=== PATIENT | male | born 1980 | race Caucasian/White ===

== ENCOUNTER 2018-10-03 14:44 | Emergency (ER) | payer MEDICAID ==
[~2018-10-03] VITALS: Ht 182.9 cm; Wt 68.0 kg
[2018-10-03 14:55] VITALS: BP 136/74
[2018-10-03 15:12] LABS: Basophils # (auto) 0.1 uL; Basophils % (auto) 1.2 % (0.0-2.0); Eosinophils # (auto) 0.1 uL; Eosinophils % (auto) 1.3 % (0.0-7.0); Hematocrit 45.5 % (41.0-53.0); Hemoglobin 15.4 g/dL (13.5-17.5); Lymphocytes # (auto) 1.4 uL; Lymphocytes % (auto) 16.3 % (10.0-50.0); Mean Corpuscular Hemoglobin 32.1 pg (28.0-32.0); Mean Corpuscular Hgb Conc. 33.7 g/dL (32.0-36.0); Mean Corpuscular Volume 95.3 fL (80.0-100.0); Monocytes # (auto) 0.8 uL; Monocytes % (auto) 9.3 % (0.0-12.0); Neutrophils # (auto) 6.1 uL; Neutrophils % (auto) 71.9 % (37.0-80.0); Platelet Count (auto) 343 10^3/uL (140-450); Red Blood Cells 4.78 10^6/uL (4.5-5.90); Red Cell Distribution Width 15.5 % (11.8-14.3); White Blood Cell 8.6 10^3/uL (4.4-10.8)
[2018-10-03 15:24] LABS: Alanine Aminotransferase 20 U/L (16-61); Anion Gap 10 (5-15); Blood Urea Nitrogen 10 mg/dL (7-18); Carbon Dioxide 28 mmol/L (21-32); Chloride 101 mmol/L (98-107); Glucose 122 mg/dL (74-106); Sodium 139 mmol/L (136-145)
[2018-10-03 15:28] LABS: Alkaline Phosphatase 80 U/L (45-117); Aspartate Aminotransferase 30 U/L (15-37); BUN/Creatinine Ratio 12.8; Bilirubin, Total 0.8 mg/dL (0.2-1.0); GFR African American 145 mL/min; GFR Non-African American 120 mL/min; Total Protein 6.2 g/dL (6.4-8.2)
[2018-10-03] MEDS ORDERED: KETOROLAC TROMETH 30 MG/ML 1ML VIAL IV ONE (15:30)
[2018-10-03] MEDS: SODIUM CHLORIDE 0.9% 1,000 ML IV ONE (15:56)
[2018-10-03] MEDS: KETOROLAC TROMETH 60MG/2ML VIAL IM ONE (15:56)
[2018-10-03] MEDS: POTASSIUM CHL 20 Meq TABLET PO ONE (15:57)
== END 2018-10-03 16:47 | disposition home or self-care (01) ==
LOC: ER 14:44
DX: R07.89 Other chest pain (principal); F17.210 Nicotine dependence, cigarettes, uncomplicated; F12.10 Cannabis abuse, uncomplicated
CPT/HCPCS: 36415; 71046; 80053; 84484; 85025; 94761; 96360; 96372; 99284; J1885; J7030

== ENCOUNTER 2020-06-12 11:46 | Emergency (ER) | payer MEDICAID ==
[~2020-06-12] VITALS: Ht 185.4 cm; Wt 68.0 kg
[2020-06-12 16:43] VITALS: BP 115/68
== END 2020-06-12 16:52 | disposition home or self-care (01) ==
LOC: ER 11:46
DX: J02.9 Acute pharyngitis, unspecified (principal); Z20.822 Contact with and (suspected) exposure to COVID-19
CPT/HCPCS: 36415; 71045; 87426; 99284; C9803; U0003